=== PATIENT | male | born 1960 | race Caucasian/White ===

== ENCOUNTER → 2017-05-15 13:27 | Outpatient (CLI) | payer MEDICAID | END | disposition home or self-care (01) | LOC: D.MRI 13:27 | DX: R22.2 Localized swelling, mass and lump, trunk (principal) ==

== ENCOUNTER → 2017-05-22 13:50 | Outpatient (CLI) | payer MEDICAID | END | disposition home or self-care (01) | LOC: D.MRI 13:50 | DX: M48.8X6 Other specified spondylopathies, lumbar region (principal) ==

== ENCOUNTER 2018-05-20 01:43 | Observation (INO) | payer MEDICAID ==
[2018-05-20] VITALS (23 sets, daily range): BP systolic 118–158; BP diastolic 72–96; BMI 33.2
[~2018-05-20] VITALS: Ht 177.8 cm; Wt 104.8 kg
--- NOTE | ~2018-05-20 | OP ---
PATIENT NAME: LAISHA HYMAN MEDICAL RECORD: [id number] :60 LOCATION:D.M2 D.2133 ADMISSION DATE:05/20/18 SURGEON: OH MATHEW MD DATE OF OPERATION: 05/20/2018 SURGEON: Oh Mathew MD ANESTHESIA: General anesthesia, Delilah Martinez CRNA. DIAGNOSIS: An 8-mm distal left ureteral stone, 11 mm left renal stone. PROCEDURE: Cystoscopy, left retrograde pyelogram, left ureteroscopy and stone extraction, left ureteral stent insertion 6-Icelandic x 26 cm with string attached. FINDINGS: Radiodense left renal stone. Distal ureteral stone is radiolucent. ESTIMATED BLOOD LOSS: None. CLINICAL HISTORY: This is a 58-year-old male with a previous history of kidney stones. He complained of left flank pain with nausea and vomiting for the past week. He finally could not tolerate the pain and he came to the Emergency Room. On CT scan, he has an 11-mm stone in the left kidney. There is an 8-mm stone causing obstruction of the left distal ureter. He was admitted through the Emergency Room for pain control. He comes now to have the left distal ureteral stone removed by ureteroscopy. We will insert a stent and he will have lithotripsy of the renal stone as an outpatient. He is not allergic to any medications. 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 DESCRIPTION OF PROCEDURE: The patient was given induction of general anesthesia. He was placed in the dorsal lithotomy position and prepped and draped. A 21-Icelandic cystoscope was used for visualization with a 30-degree lens. Penile urethra shows no strictures. No tumors were seen. Prostatic urethra is nonobstructive. Going into the bladder, he has single ureteral orifices on each side. No bladder tumors were seen. On fluoroscopy, we could easily see the left 11-mm stone, which is radiodense. However, looking in the pelvis, we could not find a specific radiodensity which would correspond to an 8 mm ureteral stone. Therefore, we intubated the left ureteral orifice with an open-ended ureteral catheter and injected diluted contrast for retrograde pyelogram. This showed the stone as a filling defect in the distal ureter. We then passed a Sensor wire past the stone into the renal pelvis. The left ureteral orifice was dilated with a 21-Icelandic x 4 cm ureteral dilation balloon with 10 atmospheres of pressure. We then took the balloon out, leaving the Sensor wire in place. The cystoscope was then removed, leaving the wire in place. We used the ureteroscope to go beside the wire. There was a great deal of tissue edema distal to the stone, which was preventing the stone from migrating distally. We got past the edema and we managed to see the stone. A 0-tip 4 wire basket 1.9-Icelandic was placed around the stone. We could not get the stone pass the edema zone. Therefore, the stone was moved back proximally and the stone was released from the basket and the balloon and the basket was removed. The ureteroscope was removed. Over the wire, we placed the ureteral dilation balloon back into the ureter just distal to where the stone was left. We had to do this by approximation as we could not see the stone. We used landmarks in the pelvis and sacrum to identify the locations. The balloon was inflated to 14 atmospheres of pressure for a few seconds and then moved distally. It was reinflated to 14 atmospheres for a few seconds and then OPERATIVE REPORT [id number] LAISHA HYMAN deflated. Finally, it was moved with last location, which would encompass the ureteral orifice and inflated at 14 atmospheres for a few seconds. In this way, we dilated the entire distal ureter distal to the stone. We were then able to put the ureteroscope up. At this time, we used a 2.4 Icelandic Nunez basket. The stone was trapped in the basket and this time, the stone easily came out of the ureter. We then backloaded the sensor wire into the cystoscope. The 6-Icelandic x 26 cm ureteral stent was placed over the wire into the renal pelvis. The distal end was pushed into the bladder using a pusher. The wire was then entirely removed. The scope was removed. The string on the distal end of the stent is maintained. It hangs out of the penile urethra. The string was tied to itself in a knot and cut shorter. The stone was sent to pathology for stone analysis. The patient will be going home today with a prescription for [place] and Flomax. I will see him in followup to arrange for left ESWL. TRANSINT:[id number] Voice Confirmation ID: [id number] DOCUMENT ID: [id number] OH MATHEW MD at 1206 CC: [id number] DICTATION DATE: 05/20/18 184 REGISTERED NURSE OBSTETRICS: 05/20/[id number] ADM IN [facility] [address] [id number]
[2018-05-20 02:14] LABS: BASOPHILS 1.2 % (0-2); EOSINOPHILS 1.8 % (0-7); HEMATOCRIT 45.6 % (42.0-54.0); HEMOGLOBIN 15.7 g/dL (13.5-17.5); IMMATURE GRANULOCYTES 0.2 % (0-5); LYMPHOCYTES 32.9 % (15-50); MCH 29.7 pg (26.0-34.0); MCHC 34.4 g/dL (31.0-37.0); MCV 86.2 fL (80.0-100.0); MEAN PLATELET VOLUME 9.7 fL (7.4-10.4); MONOCYTES 11.2 % (2-11); NEUTROPHILS 52.7 % (40-80); PLATELET COUNT 272 10x3/uL (130-400); RBC 5.29 10x6/uL (4.20-6.10); RDW 12.6 % (11.5-14.5); WBC 8.5 10x3/uL (4.8-10.8)
[2018-05-20 02:26] LABS: ALBUMIN 3.7 g/dL (3.4-5.0); ANION GAP 11.1 mmol/L (8-16); BILIRUBIN - TOTAL 0.36 mg/dL (0.2-1.3); CALCIUM 8.5 mg/dL (8.5-10.1); CARBON DIOXIDE 27.9 mmol/L (21.0-32.0); CREATININE - SERUM 1.4 mg/dL (0.6-1.3)
[2018-05-20 02:29] LABS: APPEARANCE CLEAR (CLEAR); BILIRUBIN NEGATIVE (NEGATIVE); COLOR YELLOW (YELLOW); GLUCOSE NEGATIVE (NEGATIVE); KETONE NEGATIVE (NEGATIVE); NITRITE NEGATIVE (NEGATIVE); PROTEIN NEGATIVE (NEGATIVE); UROBILINOGEN NORMAL (NORMAL)
[2018-05-20 02:30] LABS: BACTERIA FEW /hpf (NONE SEEN); CALCIUM OXALATE CRYSTALS 0-5 /hpf (NONE SEEN); EPITHELIAL CELLS 0-5 /hpf (0-5); RED CELLS - URINE 0-5 /hpf (0-5); WHITE CELLS - URINE NSEEN /hpf (0-5)
[2018-05-21 04:00] VITALS: BP 119/70
[2018-05-21 08:32] VITALS: BP 114/72
[2018-05-21 12:26] VITALS: BP 125/80
[2018-05-21 13:05] VITALS: Ht 177.8 cm; Wt 104.8 kg
[2018-05-21] MEDS ORDERED: FLOMAX0.4 MG PO (14:12)
[2018-05-21] MEDS ORDERED: HYDROCODON-ACE1 EAC7 PO (14:13)
[2018-05-31 05:13] LABS: CALCULI - CA OXALATE DIHYDRATE 30 % (()); CALCULI - CA OXALATE MONOHYDR 55 % (()); CALCULI - CALCIUM PHOSPHATE 15 % (()); CALCULI - COLOR Brown (()); CALCULI - SIZE 9x5x3 mm (()); CALCULI - WEIGHT 89.6 mg (())
== END 2018-05-21 16:39 | disposition home or self-care (01) ==
LOC: D.ER 01:43 → D.EDHOLD 03:53 → D.M2 03:53 → OBSVTIME 03:53 → D.M2 13:41
PROVIDERS: Emergency Medicine; Family Medicine
DX: N20.2 Calculus of kidney with calculus of ureter (principal); E86.0 Dehydration

== ENCOUNTER 2019-11-22 01:34 | Inpatient (IN) | payer MEDICAID ==
[~2019-11-22] VITALS: Ht 177.8 cm; Wt 104.5 kg
[~2019-11-22 01:34] MED LIST: FLOMAX0.4 MG PO; HYDROCODON-ACE1 EAC7 PO
[2019-11-22] MEDS ORDERED: ZITHROMAX250 MG PO (01:55)
[2019-11-22 02:22] LABS: BASOPHILS 0.3 % (0-2); EOSINOPHILS 0 % (0-7); HEMATOCRIT 46.4 % (42.0-54.0); HEMOGLOBIN 16.3 g/dL (13.5-17.5); IMMATURE GRANULOCYTES 0.4 % (0-5); LYMPHOCYTES 23.6 % (15-50); MCH 30.1 pg (26.0-34.0); MCHC 35.1 g/dL (31.0-37.0); MCV 85.8 fL (80.0-100.0); MEAN PLATELET VOLUME 9.4 fL (7.4-10.4); MONOCYTES 12.3 % (2-11); NEUTROPHILS 63.4 % (40-80); PLATELET COUNT 202 10x3/uL (130-400); RBC 5.41 10x6/uL (4.20-6.10); RDW 12.7 % (11.5-14.5); WBC 6.7 10x3/uL (4.8-10.8)
[2019-11-22 02:29] LABS: APTT 30.6 SECONDS (22.8-39.4); INR 1.03 (0.85-1.17)
[2019-11-22 02:31] LABS: CALC OSMOLALITY 266 mosm/kg (275-300); CALCIUM 7.8 mg/dL (8.5-10.1); CARBON DIOXIDE 22.2 mmol/L (21.0-32.0); CHLORIDE - SERUM 98 mmol/L (98-107); CREATININE - SERUM 1.4 mg/dL (0.6-1.3); GLUCOSE 103 mg/dL (74-106); POTASSIUM - SERUM 3.9 mmol/L (3.5-5.1); SODIUM 133 mmol/L (136-145); UREA NITROGEN 14 mg/dL (7-18); eGFR NON AFRICAN AMERICAN 55 mL/min (90-120)
[2019-11-22 02:45] LABS: ALBUMIN 3.5 g/dL (3.4-5.0); ALKALINE PHOSPHATASE 62 U/L (46-116); ALT (SGPT) 49 U/L (10-68); BILIRUBIN - TOTAL 0.68 mg/dL (0.2-1.3); CKMB 0.5 U/L (0.0-3.6); CREATINE KINASE 242 UL (21-232); PRO BNP 49 pg/mL (0-125); PROTEIN - SERUM 6.9 g/dL (6.4-8.2); TROPONIN-I < 0.017 ng/mL (0.000-0.060)
--- NOTE | 2019-11-22 03:20 | NUR ---
UPDRAFT IN PROCESS PER R/T.
[2019-11-22 04:00] VITALS: BP 107/76
[2019-11-22 05:12] VITALS: BP 107/76; Ht 177.8 cm; Wt 104.5 kg
--- NOTE | 2019-11-22 08:17 | NUR ---
RESTING IN BED, NO DISTRESS NOTED, SL IN PLACE, CONT ISOLATION
[2019-11-22 08:42] VITALS: BP 116/76
[2019-11-22 13:44] VITALS: BP 123/84
[2019-11-22 16:26] LABS: APPEARANCE CLEAR (CLEAR); BILIRUBIN NEGATIVE (NEGATIVE); COLOR STRAW (YELLOW); GLUCOSE NEGATIVE (NEGATIVE); KETONE NEGATIVE (NEGATIVE); NITRITE NEGATIVE (NEGATIVE); PROTEIN NEGATIVE (NEGATIVE); SPECIFIC GRAVITY 1.015 (1.005-1.020); UROBILINOGEN NORMAL (NORMAL)
[2019-11-22 17:48] VITALS: BP 136/82
[2019-11-22 19:30] VITALS: BP 141/81
[2019-11-23 00:30] VITALS: BP 102/37
--- NOTE | 2019-11-23 02:38 | NUR ---
I have reviewed this patient and I concur with the Shift Assessment completed by the Licensed Practical Nurse today this shift.
[2019-11-23 05:01] VITALS: BP 137/85
[2019-11-23 05:29] LABS: BASOPHILS 0.8 % (0-2); EOSINOPHILS 1.1 % (0-7); HEMATOCRIT 45.9 % (42.0-54.0); HEMOGLOBIN 15.7 g/dL (13.5-17.5); IMMATURE GRANULOCYTES 0.4 % (0-5); MCH 29.8 pg (26.0-34.0); MCHC 34.2 g/dL (31.0-37.0); MCV 87.3 fL (80.0-100.0); MEAN PLATELET VOLUME 9.6 fL (7.4-10.4); MONOCYTES 12.4 % (2-11); NEUTROPHILS 48.3 % (40-80); PLATELET COUNT 170 10x3/uL (130-400); RBC 5.26 10x6/uL (4.20-6.10)
[2019-11-23 05:59] LABS: WBC 4.8 10x3/uL (4.8-10.8)
[2019-11-23 06:24] LABS: ANION GAP 13.2 mmol/L (8-16); CALCIUM 7.9 mg/dL (8.5-10.1); CARBON DIOXIDE 25.6 mmol/L (21.0-32.0); CREATININE - SERUM 1.2 mg/dL (0.6-1.3); MAGNESIUM - SERUM 1.9 mg/dL (1.8-2.4); POTASSIUM - SERUM 3.8 mmol/L (3.5-5.1)
[2019-11-23 08:05] VITALS: BP 104/77
--- NOTE | 2019-11-23 08:33 | NUR ---
PATIENT CO STOMACH PAIN BECAUSE OF COUGHING. REQUESTS WATER AND ICE. CL IN REACH. WCTM.
[2019-11-23 12:45] VITALS: BP 119/74
--- NOTE | 2019-11-23 14:04 | NUR ---
PATIENT REQUESTED ICE, ICE WATER AND POPSICLE. ABOUT TO TAKE A SHOWER SO I TOLD HIM I WOULD BRING HIM A GRAPE POPSICLE WHEN HE WAS FINISHED. CLEAN BED LINENS PROVIDED. SANKET
[2019-11-23 16:17] VITALS: BP 122/84
[2019-11-23 19:30] VITALS: BP 122/71
--- NOTE | 2019-11-23 20:00 | NUR ---
ALERT RESTING IN BED, C/O SORENESS TO STOMACH FROM COUGHING SO HARD, SEE SHIFT ASSESSMENT, CALL LIGHT IN REACH
[2019-11-24 00:30] VITALS: BP 108/81
[2019-11-24 04:50] VITALS: BP 127/88
[2019-11-24 07:05] LABS: BASOPHILS 0.6 % (0-2); EOSINOPHILS 4.1 % (0-7); HEMATOCRIT 46.7 % (42.0-54.0); HEMOGLOBIN 16.2 g/dL (13.5-17.5); IMMATURE GRANULOCYTES 0.4 % (0-5); LYMPHOCYTES 41.2 % (15-50); MCH 29.9 pg (26.0-34.0); MCHC 34.7 g/dL (31.0-37.0); MCV 86.3 fL (80.0-100.0); MEAN PLATELET VOLUME 10.1 fL (7.4-10.4); MONOCYTES 8.5 % (2-11); NEUTROPHILS 45.2 % (40-80); PLATELET COUNT 183 10x3/uL (130-400); RBC 5.41 10x6/uL (4.20-6.10); WBC 5.4 10x3/uL (4.8-10.8)
[2019-11-24 07:11] LABS: CALC OSMOLALITY 276 mosm/kg (275-300); CALCIUM 8.2 mg/dL (8.5-10.1); CHLORIDE - SERUM 104 mmol/L (98-107); SODIUM 139 mmol/L (136-145); UREA NITROGEN 11 mg/dL (7-18); eGFR NON AFRICAN AMERICAN 81 mL/min (90-120)
[2019-11-24 07:24] LABS: GLUCOSE 96 mg/dL (74-106)
--- NOTE | 2019-11-24 08:00 | NUR ---
NO NEEDS AT THIS TIME. EXCITED FOR POSSIBLE DISCHARGE. CL IN REACH. WCTM
[2019-11-24 09:19] VITALS: BP 134/84
[2019-11-24] MEDS ORDERED: TAMIFLU75 MG PO (10:41)
[2019-11-24] MEDS ORDERED: MUCINEX600 MG PO (10:44)
[2019-11-24] MEDS ORDERED: TESSALON PERLE100 MG PO (10:44)
--- NOTE | 2019-11-24 12:06 | NUR ---
IV THERAPY DC'ED FROM LEFT FOREARM. DISCHARGE INSTRUCTIONS GIVEN. VERBALIZED UNDERSTANDING. WALKED OUT TO ER PARKING LOT.
== END 2019-11-24 12:07 | disposition home or self-care (01) | DRG 194 ==
LOC: D.ER 01:34 → D.MS 03:19
PROVIDERS: Family Medicine; ADMIT Internal Medicine Nephrology; ATTEND Internal Medicine Nephrology
DX: J10.1 Influenza due to other identified influenza virus with other respiratory manifestations (principal); F17.203 Nicotine dependence unspecified, with withdrawal; E87.1 Hypo-osmolality and hyponatremia; N17.9 Acute kidney failure, unspecified